=== PATIENT | female | born 1940 | race Caucasian/White ===

== ENCOUNTER 2016-12-21 07:30 | Inpatient (IN) | payer MEDICARE ==
--- NOTE | 2016-12-11 22:34 | HP ---
HISTORY AND PHYSICAL: DATE OF OFFICE VISIT: 12/11/16 DATE OF SURGERY: 12/21/16 SURGEON: Randa Dowell MD PROCEDURE: Left total knee arthroplasty. CHIEF COMPLAINT: Left knee pain. HISTORY OF PRESENT ILLNESS: Ms. Frausto is a 76-year-old female with complaints of left knee pain. She has failed conservative management and has elected to proceed with a left total knee arthroplasty. The surgery is scheduled for 12/21/[address] Dowell. PAST MEDICAL HISTORY: Osteoarthritis. PAST SURGICAL HISTORY: Right knee arthroplasty, left hip hemiarthroplasty followed by conversion to a left total hip arthroplasty, bilateral bunionectomy , and tonsillectomy. CURRENT MEDICATIONS: 1. Multivitamin. 2. Calcium. 3. Vitamin D3 and B12. ALLERGIES: No known drug allergies. FAMILY HISTORY: Heart disease, diabetes, and cancer. SOCIAL HISTORY: She is a 76-year-old female, she lives alone, but lives next door to her son. She does not smoke. Uses drugs occasionally. Uses alcohol. REVIEW OF SYSTEMS: A complete 14-point review of systems was reviewed with the patient. All was negative or noncontributory. PHYSICAL EXAMINATION GENERAL: She is well developed and well nourished, in no acute distress. VITAL SIGNS: She stands 5 feet 3 inches tall, weighs 120 pounds, her blood pressure 117/72, and heart rate 79. HEENT: Normocephalic and atraumatic. NECK: Supple. No palpable lymph nodes. Trachea is midline. PULMONARY: The lungs are clear to auscultation bilaterally. CARDIO: Regular rate and rhythm. Strong S1 and S2. No murmurs, gallops, or rubs. ABDOMEN: Soft, nontender, and nondistended. NEUROLOGIC: She is alert and oriented x3. Cranial nerves II through XII are intact. MUSCULOSKELETAL: Left lower extremity, the skin is intact. She has a moderate joint effusion and tenderness over the medial and lateral joint line and 2+ dorsalis pedis pulses and intact sensation. ASSESSMENT AND PLAN: Ms. Frausto is a 76-year-old female with complaints of left knee pain. She has failed conservative management and has elected to proceed with a left total knee arthroplasty, which is scheduled for 12/21/[address] Dowell discussed the risks and benefits of the surgery at today's visit and all of her questions were answered. Percocet and Colace were sent to our pharmacy for postoperative pain control and she will discuss the DVT prophylaxis with Dr. Dowell. She would prefer to take aspirin twice a day over the Coumadin. She will need her medication sent at today's visit until they make the decision. She will followup with Dr. Dowell in 10 to 14 days. KAREN COLLADO [id number]/[facility] #: [id number] MTDArron
--- NOTE | 2017-03-02 20:31 | HP ---
HISTORY AND PHYSICAL: DATE OF ADMISSION/SURGERY: 03/13/17 DATE OF OFFICE VISIT: 03/02/17 SURGEON: Randa Dowell MD * (DICTATED BY KAREN COLLADO) PROCEDURE: Left total knee arthroplasty. CHIEF COMPLAINT: Left knee pain. HISTORY OF PRESENT ILLNESS: Ms. Frausto is a 76-year-old female with complaints of left knee pain. She has failed conservative management and has elected to proceed with a left total knee arthroplasty, which is scheduled for 03/13/[address] Dowell. PAST MEDICAL HISTORY: Osteoarthritis. PAST SURGICAL HISTORY: Tonsillectomy, right total knee arthroplasty, left total hip arthroplasty. CURRENT MEDICATIONS: 1. Multivitamin. 2. Calcium. 3. Vitamin D. ALLERGIES: No known drug allergies. FAMILY HISTORY: Heart disease and lymphoma. SOCIAL HISTORY: She is a 76-year-old female. She lives alone. She does not smoke or use drugs. Uses occasional alcohol. REVIEW OF SYSTEMS: A complete 14-point review of systems was reviewed with the patient, it was negative and noncontributory. PHYSICAL EXAMINATION GENERAL: Well developed, well nourished, in no acute distress. VITAL SIGNS: She stands 5 feet 3 inches tall, weighs 120 pounds, her blood pressure is 120/81, her heart rate is 77. HEENT: Normocephalic, atraumatic. NECK: Supple. No palpable lymph nodes. PULMONARY: The lungs are clear to auscultation bilaterally. CARDIO: Regular rate and rhythm. Strong S1, S2. ABDOMEN: Soft, nontender, and nondistended. MUSCULOSKELETAL: Left lower extremity, the skin is intact. There are no open wounds or abrasions. Tpey-nk-qhbowdvo joint effusion. Tenderness over the medial and lateral joint line. No varus or valgus instability. She walks with a slightly antalgic-type gait favoring her left knee. NEUROLOGICAL: Alert and oriented x3. Cranial nerves II through XII are intact. ASSESSMENT AND PLAN: Ms. Frausto is a 76-year-old female with complaints of left knee pain secondary to advanced osteoarthritis. She has failed conservative management and has elected to proceed with left total knee arthroplasty, which is scheduled for 03/13/[address] Dowell discussed the risks and benefits of the surgery and all of her questions were answered. Colace was sent to her pharmacy today for postoperative constipation. She has a prescription for Percocet and she has declined Coumadin. She preferred to take aspirin, so prescription for aspirin 325 was sent to her pharmacy. It is recommended she take it twice a day for a month for DVT prophylaxis. She will see Dr. Dowell back in 2 weeks after the surgery. KAREN COLLADO [id number]/[facility] #: [id number] MTDArron
[2017-03-12] MEDS ORDERED: Buffered Lidocaine 0.9% SYRIN* 5 ML/SYR SYRINGE INTRADERM ONE (14:38)
[2017-03-13] MEDS ORDERED: Gabapentin CAP(*) 300 MG PO ONE (06:00)
[2017-03-13] MEDS ORDERED: Buffered Lidocaine 0.9% SYRIN* 5 ML/SYR SYRINGE ONE (10:13)
[2017-03-13] MEDS ORDERED: Gabapentin CAP(*) 300 MG ONE (10:13)
[2017-03-13] MEDS ORDERED: ceFAZolin 2 GM PREMIX(*) 2 GM/50 ML BAG IVPB ONE (10:13)
[2017-03-13] MEDS ORDERED: Midazolam* 1 MG/ML 5 ML VIAL (5 MG) ONE (13:32)
[2017-03-13] MEDS ORDERED: fentaNYL* 50 MCG/ML 2 ML VIAL (100 MCG VIAL) ONE (13:32)
[2017-03-13] MEDS ORDERED: Lidocaine 2% EPI 1:200000 MPF* 20 ML VIAL ONE (14:07)
[2017-03-13] MEDS ORDERED: Propofol* 10 MG/ML 20 ML BTL IV PUSH ONE (14:31)
[2017-03-13] MEDS ORDERED: Ibuprofen TAB* 400 MG PO PRN (14:50)
[2017-03-13] MEDS ORDERED: Lactated Ringers 500 ml BAG* 500 ML IV PRN (14:50)
[2017-03-13] MEDS ORDERED: DiMENhydriNATE IV* 50 MG/ML VIAL IV PUSH PRN (14:50)
[2017-03-13] MEDS ORDERED: fentaNYL* 50 MCG/ML 2 ML VIAL (100 MCG VIAL) IV PRN (14:53)
[2017-03-13] MEDS ORDERED: Ropivacaine* 300 MG in NS 0.9% 250 ML* 240 ML EPIDURAL SCH (15:00)
[2017-03-13] MEDS ORDERED: EPHEDrine (Pressors)* 50 MG/ML VIAL ONE (15:55)
[2017-03-13] MEDS ORDERED: Acetaminophen TAB* 325 MG PO PRN (16:21)
[2017-03-13] MEDS ORDERED: Polyethylene Glycol 3350* 17 GM PACKET PO PRN (16:30)
[2017-03-13] MEDS ORDERED: Magnesium Hydroxide LIQ* 30 ML UDC PO PRN (16:30)
[2017-03-13] MEDS ORDERED: Bisacodyl SUPP* 10 MG SUPP PR PRN (16:30)
--- NOTE | 2017-03-13 17:43 | RAD ---
Indication: Immediate postop exam following LEFT total knee replacement. Comparison: November 06, 2016 Technique: Portable AP and cross table lateral views LEFT knee. Report: Status post total knee replacement. Anterior surgical drain in place. Post-op fluid and gas is seen in the joint space and anterior subcutaneous tissues. Alignment is anatomic. No periprosthetic fracture evident. IMPRESSION: Unremarkable immediate postoperative appearance following LEFT knee replacement.
[2017-03-13] MEDS: Cyanocobalamin TAB* 500 MCG PO SCH (18:06)
[2017-03-13] MEDS: ceFAZolin VIAL(*) 1 GM in NS 0.9% 50 ML* 50 ML IVPB SCH (22:22)
[2017-03-13] MEDS: Docusate CAP* 100 MG PO SCH (22:39)
[2017-03-14] MEDS: oxyCODONE TAB* 5 MG TAB PO PRN ×3 (05:43→19:13)
[2017-03-14] MEDS: ceFAZolin VIAL(*) 1 GM in NS 0.9% 50 ML* 50 ML IVPB SCH ×2 (05:45→13:36)
[2017-03-14 05:57] LABS: Hematocrit 35 % (35-47); Hemoglobin 11.7 g/dl (12.0-16.0)
[2017-03-14] MEDS ORDERED: Ondansetron INJ* 2 MG/ML VIAL IV PRN (06:00)
[2017-03-14] MEDS ORDERED: diPHENhydraMINE PO* 25 MG PO PRN (06:00)
[2017-03-14] MEDS ORDERED: Morphine INJ* 4 MG/ML 1 ML SYRINGE IV PRN (06:00)
[2017-03-14] MEDS ORDERED: diPHENhydraMINE IV* 50 MG/ML 1 ml VIAL (BENADRYL) IV PRN (06:00)
[2017-03-14] MEDS ORDERED: Ondansetron TAB* 4 MG PO PRN (06:00)
[2017-03-14 06:09] LABS: BUN/Creatinine Ratio 20.7 (8-20); Calcium 8.4 mg/dL (8.6-10.3); EGFR African American 129.6 (>60); EGFR Non-African American 100.8 (>60); Potassium 3.8 mmol/L (3.5-5.0)
[2017-03-14] MEDS: oxyCODONE/Acetamin 5/325 MG* TAB PO PRN (08:22)
[2017-03-14] MEDS: Multivitamins/Minera Areds(NF) 1 CAP CAP PO SCH (08:23)
[2017-03-14] MEDS: Calcium Carbonate TAB* 1250 MG (CALCIUM 500 MG) PO SCH (08:23)
[2017-03-14] MEDS: Docusate CAP* 100 MG PO SCH ×2 (08:23→21:13)
[2017-03-14] MEDS: Cholecalciferol TAB* 400 UNIT PO SCH (08:23)
[2017-03-14] MEDS: Aspirin TAB* 325 MG PO SCH ×2 (09:39→21:13)
--- NOTE | 2017-03-14 10:16 | PN ---
Progress Note - Progress Note Date of Service: 03/14/17 SOAP: Subjective: []Patient seen OOB in chair. She felt dizzy when she was moving to chair with PT. Denies SOB or CP. Pain moderate left knee. Objective: [] Vital Signs Temp 98.1 F 03/14/17 08:00 Pulse 80 03/14/17 08:00 Resp 16 03/14/17 08:22 BP 117/67 03/14/17 08:00 Pulse Ox 99 03/14/17 09:15 Intake & Output 03/13/17 03/14/17 03/14/17 18:59 06:59 18:59 Intake Total 3150 2957 360 Output Total 250 650 Balance 2900 2307 360 Weight 118 lb 6.4 oz Intake: IV Fluids 3050 2064 LR 3000 2064 NS 50ML, Cefazolin 2G 50 IVPB 53 ABX - CEFAZOLIN 53 Oral 100 840 360 Output: Amezquita 250 650 Other: # Bowel Movements 0 Laboratory Results - last 24 hr 03/14/17 03/14/17 05:18 05:18 Hgb 11.7 L Hct 35 Sodium 131 L Potassium 3.8 Chloride 99 L Carbon Dioxide 28 Anion Gap 4 BUN 12 Creatinine 0.58 Est GFR ( Amer) 129.6 Est GFR (Non-Af Amer) 100.8 BUN/Creatinine Ratio 20.7 H Glucose 161 H Calcium 8.4 L Left knee dressings dry and intact hemovac drain pulled without difficulty, tip intact calf NT +DF/PF left ankle sensation intact distally Assessment: []s/p Left total knee arthroplasty POD #1 Plan: []PT/OT WBAT Dizziness likely due to narcotics, will adjust if necessary Ecotrin 325 mg BID Home 1-2 days
[2017-03-14] MEDS ORDERED: Scopolamine 1.5 mg* PATCH TRANSDERM SCH (11:00)
--- NOTE | 2017-03-14 13:53 | OP ---
DATE OF OPERATION: 03/13/17 - ROOM #346 DATE OF : 38 ATTENDING SURGEON: Randa Dowell MD CAREGIVERS NON MEDICAL: KAREN Tavares. Ms. Alas did help throughout the procedure with preparation of the leg, wound retraction, manipulation of the knee, and wound closure. ANESTHESIOLOGIST: Dr. Anton. ANESTHESIA TYPE: Spinal epidural. PRE-OP DIAGNOSIS: Severe endstage degenerative osteoarthritis of the left knee joint with valgus deformity. POST-OP DIAGNOSIS: Severe endstage degenerative osteoarthritis of the left knee joint with valgus deformity. OPERATIVE PROCEDURE: Left total knee arthroplasty. TOURNIQUET TIME: 43 minutes. HARDWARE USED: Cemented Tobar and nephew total knee arthroplasty hardware. Two packages of Simplex bone cement. For the femur, a size 5 left, narrow, femoral component. For the tibia, a size 3 left tibial baseplate. For the insert, an 11- mm posterior stabilized articular insert and for the patella, a size 29, 7.5 thickness, 3-peg all-poly patella. SPECIMEN: Bone and cartilage from the left knee joint sent to pathology. ESTIMATED BLOOD LOSS: 200 cc. COMPLICATIONS: None. BRIEF HISTORY/INDICATION: Ms. Frausto is a 76-year-old female with years of increasingly severe left knee pain and deformity. She failed conservative treatment with anti-inflammatories, brace wear, pain medication, intraarticular injection, and physical therapy. Radiograph showed [id number] severe arthritis. She was developing a valgus deformity at the knee. She elected to undergo left total knee arthroplasty due to continued pain and decreased quality of life. Informed consent was obtained from the patient. She understood the risks of surgery included but were not limited to bleeding, infection, damage to nearby structures, continued pain, need for further surgery , intraoperative fracture, nerve palsy, hardware failure or loosening, knee stiffness, loss of motion, stroke, heart attack, blood clot, and . She wished to proceed. INTRAOPERATIVE FINDINGS: Intraoperatively, the patient was noted to have preop flexion contracture of 10 degrees with flexion of 125 degrees. She was noted to have postop range of motion full extension to 130 degrees at the end of the case. She did have a 15-degree valgus deformity, which was corrected to anatomic 3 to 5 degrees of valgus by the end of the case. She was noted to have full-thickness loss of cartilage in the lateral and patellofemoral compartments with subchondral sclerosis, which was significant. 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 DESCRIPTION OF PROCEDURE: Ms. Frausto was identified in the pre-anesthesia unit. Her left lower extremity was marked as the correct operative site. Informed consent was signed and placed in the chart. The patient was taken to the operating room and placed under spinal epidural anesthesia. A Amezquita catheter was placed. Tourniquet was placed on the left thigh. Left lower extremity was prepped and draped in the usual sterile fashion. Preop time-out was made to correctly identify the patient's side and site. Appropriate perioperative antibiotics were given within 1 hour of incision. Tourniquet was inflated and total tourniquet time for this procedure was 43 minutes. A 12-cm midline incision was made with a 10-blade and carried down sharply to the extensor mechanism. The extensor mechanism was then opened using standard medial parapatellar arthrotomy. Patella was subluxed laterally. Electrocautery was used to periosteally elevate soft tissue off the superomedial tibia to the mid sagittal plane. The knee was flexed up. Anterior horn and the lateral meniscus were sharply released. There was no ACL. A drill was used to enter the distal femur. Intramedullary distal femoral cutting guide was placed and pinned into position. Lateral femoral condylar hypoplasia was noted and accounted for. 5-mm of distal femoral bone was carefully removed with an oscillating saw. Next, the external rotation guide was pinned on the distal femur. The distal femur was sized to a size 5. Size 5 multi-cutting jig was pinned on the distal femur. The oscillating saw was used to make appropriate 4-chamfer cuts. All bony fragments were carefully removed. The PCL was completely released at this point. The tibia was subluxed anteriorly. Extramedullary tibial cutting guide was pinned on the proximal tibia. Oscillating saw was used to make the proximal tibial cut perpendicular to the mechanical axis of the tibia. The bone was carefully removed. The knee was brought into full extension and a spacer block had a good fit. There was good medial and lateral ligamentous balancing. Flexion and extension gaps were well balanced. Overall alignment was approximately 3 degrees of anatomic valgus. The knee was flexed up and lamina tomahawk weapon system operator was placed both medially and laterally. Any remaining meniscus was care-fully removed using electrocautery. Posterior osteophytes were carefully removed using a curved osteotome. A size 5 left, narrow, femoral trial was chosen and impacted on to the distal femur. This trial had excellent fit. The box for the posterior stabilized implant was prepared using a reamer and box-cut osteotome. Size 3 tibial tray trail with an 11-mm insert trial was chosen. The knee was taken through a range of motion. The knee had full extension to 130 degrees of flexion. Good patellofemoral tracking. The patella was everted. 7-mm of patellar bone and cartilage were carefully removed using an oscillating saw. The patella was sized to a size 29. The 3 peg holes were drilled through the size 29 guide. A 7.5 thickness trial 29 patella was chosen. This was placed and the knee was taken through a range of motion. There was good patellofemoral tracking. All trials were carefully removed. Tibia was subluxed anteriorly and sized to a size 3. Proximal tibia was prepared using a keel punch. All bony cut surfaces were copiously irrigated with sterile saline and dried. The final implants were cemented into place starting with the tibia, followed by the femur and last the patella. An 11-mm insert trial was chosen and placed while the knee was brought out into full extension. Tourniquet was turned down at 43 minutes. The knee was copiously irrigated with sterile saline. Electrocautery was used to obtain meticulous hemostasis. Once the cement had fully cured, the insert trial was removed. Any excess cement was carefully removed from around the implant capsule. Final insert chosen was an 11-mm posterior stabilized articular insert size 3-4. This was locked into position on the tibial tray without difficulty. Stability of the insert was checked and rechecked and noted to be stable. The knee was copiously irrigated with sterile saline. The extensor mechanism was closed using interrupted #1 Vicryls over a medium Hemovac drain. The rest of the incision was closed in a layered fashion using 0 and 2-0 Vicryls. Skin was closed using running 3-0 nylon sutures. The incision was covered with sterile Xeroform, 4x4s, and Webril. Geovany wrap and cold pack were placed over this. The patient's anesthesia was reversed without difficulty. She was taken to the PACU in stable condition. Intended weightbearing will be weightbearing as tolerated. Intended DVT prophylaxis will be Coumadin with a Lovenox bridge. [id number]/[facility] #: [id number] [facility]
[2017-03-14] MEDS: Cyanocobalamin TAB* 500 MCG PO SCH (17:30)
[2017-03-15] MEDS: oxyCODONE/Acetamin 5/325 MG* TAB PO PRN (03:38)
[2017-03-15 06:07] LABS: Hematocrit 29 % (35-47); Hemoglobin 9.9 g/dl (12.0-16.0)
[2017-03-15] MEDS: Cholecalciferol TAB* 400 UNIT PO SCH (08:58)
[2017-03-15] MEDS: Aspirin TAB* 325 MG PO SCH ×2 (08:59→21:44)
[2017-03-15] MEDS: Calcium Carbonate TAB* 1250 MG (CALCIUM 500 MG) PO SCH (08:59)
[2017-03-15] MEDS: Docusate CAP* 100 MG PO SCH ×2 (08:59→21:44)
[2017-03-15] MEDS: oxyCODONE TAB* 5 MG TAB PO PRN (08:59)
[2017-03-15] MEDS: Multivitamins/Minera Areds(NF) 1 CAP CAP PO SCH (09:00)
--- NOTE | 2017-03-15 10:38 | PN ---
Progress Note - Progress Note Date of Service: 03/15/17 SOAP: Subjective: []Patient seen working in PT, doing well with leg extensions, states she has moderate knee pain but more bothersome is the nausea from Percocet. She hopes to go home tomorrow. She denies SOB or CP or dizziness. Objective: [] Vital Signs Temp 98.5 F 03/15/17 07:28 Pulse 81 03/15/17 07:28 Resp 16 03/15/17 08:59 BP 93/52 03/15/17 07:28 Pulse Ox 98 03/15/17 08:00 Intake & Output 03/14/17 03/15/17 03/15/17 18:59 06:59 18:59 Intake Total 1600 1160 140 Output Total 1200 600 200 Balance 400 560 -60 Intake: IV Fluids 880 ABX - CEFAZOLIN 165 LR 715 Oral 720 1160 140 Output: Urine 1100 600 200 Amezquita 100 Other: # Bowel Movements 0 Laboratory Results - last 24 hr 03/15/17 05:54 Hgb 9.9 L Hct 29 L Left knee dressings were changed, incision benign without new drainage new 4x4s and MAYRA applied calf non tender and soft +DF/PF left ankle Assessment: []s/p left total knee arthroplasty POD #2 Plan: []PT/OT WBAT ASA 325 mg BID try Tramadol for pain Discharge home Sunday with VNS.
[2017-03-15] MEDS: traMADol TAB* 50 MG PO PRN ×2 (13:06→21:44)
[2017-03-15] MEDS: Cyanocobalamin TAB* 500 MCG PO SCH (17:48)
[2017-03-16 05:59] LABS: Hematocrit 28 % (35-47); Hemoglobin 9.5 g/dl (12.0-16.0)
[2017-03-16] MEDS: Aspirin TAB* 325 MG PO SCH (08:44)
[2017-03-16] MEDS: Calcium Carbonate TAB* 1250 MG (CALCIUM 500 MG) PO SCH (08:44)
[2017-03-16] MEDS: Docusate CAP* 100 MG PO SCH (08:44)
[2017-03-16] MEDS: Cholecalciferol TAB* 400 UNIT PO SCH (08:44)
[2017-03-16] MEDS: Multivitamins/Minera Areds(NF) 1 CAP CAP PO SCH (08:49)
--- NOTE | 2017-03-16 11:40 | PN ---
Progress Note - Progress Note Date of Service: 03/16/17 SOAP: Subjective: 76 y.o female s/p L TKA 03/13/[address] Dowell. Patient reports feeling well, no complaints/ concerns. VSS overnight, H&H stable. [place] well with PT. Objective: General- Well appearing, NAD AO resting in bed comfortably MSK- Dressing taken down, incision C/D/I, minimal erythema at most proximal incision. + DF/PF. PT 2+ b/l, neg homans sign b/l. sensation grossly intact. Vital Signs Temp 98.4 F 03/16/17 07:35 Pulse 82 03/16/17 07:35 Resp 18 03/16/17 08:00 BP 107/78 03/16/17 07:35 Pulse Ox 99 03/16/17 08:00 Intake & Output 03/15/17 03/16/17 03/16/17 18:59 06:59 18:59 Intake Total 340 1065 480 Output Total 900 500 Balance -560 565 480 Intake: Oral 340 1065 480 Output: Urine 900 500 Other: # Bowel Movements 0 Laboratory Results - last 24 hr 03/16/17 05:35 Hgb 9.5 L Hct 28 L Assessment: 76 y.o female s/p L TKA 03/13/[address] Dowell, stable Plan: - DVT prophylaxis- ASA 325 mg BID - Follow up with Dr. Dowell within 10-14 days - Continue PT at home - D/C to home today with home care. Active Medications Generic Name Dose Route Start Last Admin Trade Name Freq PRN Reason Stop Dose Admin Acetaminophen 650 mg 03/13/17 16:21 03/14/17 05:43 Tylenol Tab* PO 650 mg Q4H PRN Administration mild pain or fever Aspirin 325 mg 03/14/17 09:00 03/16/17 08:44 Aspirin Tab* PO 325 mg BID YOLANDA Administration Bisacodyl 10 mg 03/13/17 16:30 Dulcolax Supp* TX DAILY PRN constipation Calcium Carbonate 1,250 mg 03/14/17 09:00 03/16/17 08:44 Calcium Carbonate Tab* PO 1,250 mg QAM YOLANDA Administration Cholecalciferol 1,000 unit 03/14/17 09:00 03/16/17 08:44 Vitamin D Tab* PO 1,000 unit QAM YOLANDA Administration Cyanocobalamin 500 mcg 03/13/17 18:00 03/15/17 17:48 Vitamin B12 Tab* PO 500 mcg QPM YOLANDA Administration Diphenhydramine HCl 12.5 mg 03/14/17 06:00 Benadryl Iv* IV Q6H PRN PRURITIS Diphenhydramine HCl 25 mg 03/14/17 06:00 Benadryl Po* PO Q6H PRN INSOMNIA Docusate Sodium 100 mg 03/13/17 21:00 03/16/17 08:44 Colace Cap* PO 100 mg BID YOLANDA Administration Lactated Ringer's 1,000 mls @ 100 mls/hr 03/13/17 17:00 03/14/17 03:07 Lactated Ringers 1000 Ml Bag* IV 100 mls/hr PER RATE YOLANDA Administration Lactulose 30 ml 03/13/17 16:30 03/15/17 21:44 Lactulose* PO 30 ml Q6H PRN Administration constipation Magnesium Hydroxide 30 ml 03/13/17 16:30 03/15/17 08:56 Milk Of Magnesia Liq* PO 30 ml Q6H PRN Administration constipation Morphine Sulfate 4 mg 03/14/17 06:00 Morphine Inj (Syringe)* IV Q2H PRN PAIN Multivitamins/Minerals 1 cap 03/14/17 09:00 03/16/17 08:49 Preservision Areds(Multivitamins/Mineral)(Nf) PO Not Given QAM [facility] Ondansetron HCl 4 mg 03/14/17 06:00 03/14/17 09:17 Zofran Inj* IV 4 mg Q6H PRN Administration nausea Ondansetron HCl 4 mg 03/14/17 06:00 Zofran Tab* PO Q6H PRN NAUSEA Oxycodone HCl 10 mg 03/14/17 06:00 03/15/17 08:59 Roxycodone Tab* PO 10 mg Q4H PRN Administration breakthru pain Oxycodone/Acetaminophen 1 tab 03/14/17 06:00 03/15/17 03:38 Percocet 5/325 Tab* PO 1 tab Q3H PRN Administration PAIN - MODERATE Pharmacy Profile Note 1 note 03/17/17 11:00 Scopolomine Patch Remove* PATCH OFF Q72H [facility] Polyethylene Glycol/Electrolytes 17 gm 03/13/17 16:30 Miralax* PO DAILY PRN Constipation Scopolamine 1 patch 03/14/17 11:00 03/14/17 10:28 Transderm-Scop 1.5 Mg Patch* TRANSDERM 1 patch Q72H YOLANDA Administration Tramadol HCl 50 mg 03/15/17 10:38 03/15/17 21:44 Ultram* PO 50 mg Q6H PRN Administration mild to moderate pain
[2017-03-16 12:02] VITALS: BP 108/56
[2017-03-17] MEDS ORDERED: Scopolomine PATCH Remove* 1 NOTE MISC PATCH OFF SCH (11:00)
== END 2017-03-16 12:50 | disposition home health service (06) | DRG 470 ==
LOC: AA 03-13 10:05 → SSU 03-13 17:32
PROVIDERS: ADMIT Orthopaedic Surgery Adult Reconstructive Orthopaedic Surgery; ATTEND Orthopaedic Surgery Adult Reconstructive Orthopaedic Surgery
PROC: 0SRD0J9 Replacement of Left Knee Joint with Synthetic Substitute, Cemented, Open Approach (ICD-10-PCS; principal; 2017-03-13 12:30)
DX: M17.12 Unilateral primary osteoarthritis, left knee (principal); F19.90 Other psychoactive substance use, unspecified, uncomplicated; M21.062 Valgus deformity, not elsewhere classified, left knee; Z96.651 Presence of right artificial knee joint; Z96.642 Presence of left artificial hip joint; R11.0 Nausea; T40.2X5A Adverse effect of other opioids, initial encounter; M25.762 Osteophyte, left knee; Z80.7 Family history of other malignant neoplasms of lymphoid, hematopoietic and related tissues; Z82.49 Family history of ischemic heart disease and other diseases of the circulatory system; Z72.89 Other problems related to lifestyle; Z83.3 Family history of diabetes mellitus
CPT/HCPCS: 36415; 80048; 85014; 85018; 94760; A9270-GY; C1776; J0690; J2250; J2405; J2704; J2795; J3010

== ENCOUNTER 2016-12-30 05:41 | Observation (INO) | payer MEDICARE ==
[2016-12-30 06:53] LABS: Albumin 3.8 g/dL (3.2-5.2); Calcium 9.3 mg/dL (8.6-10.3); EGFR African American 90.8 (>60); EGFR Non-African American 70.6 (>60); Globulin 2.7 g/dL (2-4); Magnesium 2.1 mg/dL (1.9-2.7); Potassium 3.9 mmol/L (3.5-5.0); Total Bilirubin 0.9 mg/dL (0.2-1.0); Total Protein 6.5 g/dL (6.4-8.9)
[2016-12-30 06:54] LABS: Troponin I 0.01 ng/mL (<0.04)
[2016-12-30 06:58] LABS: Hematocrit 43 % (35-47); Hemoglobin 14.6 g/dl (12.0-16.0); Mean Corpuscular HGB Conc 34 g/dl (31-36); Mean Corpuscular Hemoglobin 31 pg (27-31); Mean Corpuscular Volume 90 fL (80-97); Mean Platelet Volume 8 um3 (7.4-10.4); Red Cell Distribution Width 14 % (10.5-15); White Blood Count 4.6 10^3/ul (3.5-10.8)
[2016-12-30 07:02] LABS: TSH (Thyroid Stimulating Horm) 3.13 mcIU/mL (0.34-5.60)
[2016-12-30 08:35] LABS: Free T4 0.91 ng/dL (0.61-1.12)
[2016-12-30] MEDS ORDERED: Aspirin TAB* 325 MG PO ONE (08:40)
[2016-12-30] MEDS ORDERED: Acetaminophen TAB* 325 MG PO PRN (10:41)
[2016-12-30] MEDS ORDERED: Ibuprofen TAB* 400 MG PO PRN (10:51)
[2016-12-30 10:58] LABS: Urine Bacteria Absent (Absent); Urine Bilirubin Negative (Negative); Urine Glucose Negative (Negative); Urine Nitrite Negative (Negative)
[2016-12-30] MEDS: NS 0.9% 1000 ML* 1,000 ML IV SCH ×2 (11:59→20:15)
--- NOTE | 2016-12-30 15:54 | HP ---
HISTORY AND PHYSICAL: PRIMARY CARE PROVIDER: Dr. Menard. DATE OF ADMISSION: 12/30/2016. CHIEF COMPLAINT: Palpitations and lightheadedness. HISTORY OF PRESENT ILLNESS: Virgen Frausto is a 76-year-old female who was being evaluated for left total knee arthroplasty that was planned to be performed by Dr. Dowell. Patient was noted that she had ventricular bigeminy on her EKG and her surgery was delayed. Ever since, the patient had been worried and unwell. She stated that she felt light-headed, mostly when she changes position. By lightheadedness, she explained that she experiences heaviness in the back of her head and occasional headache. Today in the morning, she had an episode of palpitation. She stated that her heart was fluttering and radiated to bilateral shoulders. She denied any chest pain. The patient stated that her exercise tolerance is excellent. She does aerobics and yoga as well as water aerobics and she has not had any problems with exercise intolerance. She is going to be placed on overnight observation. So far her EKG is unremarkable and troponin is negative. PAST MEDICAL HISTORY: 1. Osteoarthritis, status post right knee arthroplasty and left hip hemiarthroplasty in the past. She also has a history of bilateral bunionectomy. 2. History of tonsillectomy. MEDICATIONS: Include: 1. Multivitamin. 2. Calcium supplement, vitamin D, and vitamin B12 supplements. ALLERGIES: No known drug allergies. FAMILY HISTORY: Positive for heart disease in parents. SOCIAL HISTORY: Patient lives alone. She denies any alcohol, tobacco, or drug use. Her surrogate is her son who lives nearby. His name is Lucie Frausto. REVIEW OF SYSTEMS: Please see history of present illness. In addition to the above mentioned, the patient had always been in good health. Once again her exercise tolerance is excellent. She denies any chest pain. All the remaining 14 systems were reviewed with the patient and were otherwise negative. PHYSICAL EXAMINATION VITAL SIGNS: Blood pressure 123/73 that when sitting down, and when standing up it went down to 118/70. Heart rate continues to be in the 70s. Temperature was 97.8, respiratory rate 15, oxygen saturation 98% on room air. GENERAL: The patient is a very pleasant 76-year-old female who is in no acute distress, alert, awake, and oriented x3. HEENT: Head atraumatic, normocephalic. Eyes: Pupils equal, reactive to light and accommodation. Oropharynx: Clear. Mucosa moist. NECK: Supple. No JVD. No bruit bilaterally. CARDIOVASCULAR: Regular rate and rhythm. No murmur. RESPIRATORY: Clear to auscultation bilaterally. ABDOMEN: Soft, nontender. Bowel sounds are present in all 4 quadrants. EXTREMITIES: There is no edema. Pulses +2 bilaterally. No clubbing or cyanosis. Please note severe osteoarthritic changes in DIP joints in bilateral hands as well as bunions in bilateral feet. NEUROLOGIC: On neuro evaluation, her speech is clear. The patient does appear to have left-sided facial droop and when she smiles it is very pronounced and present on the left. Nevertheless, when she was given a mirror and asked to compare with the way she usually is, she stated that that abnormality is chronic. Remaining cranial nerves are grossly intact. Motor strength is 5/5 bilaterally. Sensation is intact. Please note that when checking the patient orthostatic blood pressures, when she stood up she felt "dizzy." LABORATORY DATA: Showed a white blood cell count of 4.6, hemoglobin 14.6, hematocrit 43, and platelet of 185. Sodium 136, potassium 3.9, chloride 104, carbon dioxide 26, BUN 15, creatinine 0.79. Liver function tests were unremarkable. Troponin of 0.01. TSH of 3.1. Urinalysis grossly unremarkable apart from trace esterase. EKG showed normal sinus rhythm. Her heart rate is 72 beats per minute with minimal ST-elevation in leads V1 to V3, most likely due to J-point elevation. Comparing with the prior EKG from 12/13/16 patient had previously bigeminy that by today resolved. Portable chest x-ray, impression: "No active disease." ASSESSMENT AND PLAN: 1. Episodes of lightheadedness and palpitations. At this point, patient appears to be mildly orthostatic and we will treat the patient with intervenous fluids and admit her overnight to telemetry monitored bed. We will continue tracking troponins. 2. In regards to patient's bigeminy, recorded while preop evaluated. At this point, I will obtain a transthoracic echocardiogram in the morning and ask Dr. Stringer to see the patient in consultation. For DVT prophylaxis, the patient is going to be placed on heparin subcutaneously. Code status, the patient's code status is full. TIME SPENT: Approximately 65 minutes was spent on admission of this patient, more than half the time was spent [id number] with the patient doing the interview and physical exam. CC: Dr. Dowell, Dr. Menard and Dr. Stringer.* [id number]/[facility] #: [id number] MTDD
--- NOTE | 2016-12-30 16:10 | CONS ---
CC: Dr. Randa Dowell; Dr. Virgen Menard CARDIOLOGY CONSULTATION: DATE OF CONSULT: 12/30/16 INDICATION FOR CONSULTATION: Chest fluttering and PVCs. HISTORY OF PRESENT ILLNESS: The patient is a 76-year-old female with very little past medical histo ry, who came to the emergency room because of chest fluttering. The patient states that she awoke th is morning. She felt like her heart was skipping beats. She also had some mild discomfort in her c hest. She denied any crushing chest pain. She denied any radiation of the discomfort to her should er or jaw. She did not have any diaphoresis. The patient decided to come to the emergency room. The patient was scheduled for knee replacement surgery earlier this week. On arrival to the preop a laura, she was noted to be in ventricular bigemini. An EKG showed frequent PVCs and the surgery was c anceled. The patient is potentially scheduled for a cardiology consultation later this week. PAST MEDICAL HISTORY: Significant for arthritis. PAST SURGICAL HISTORY: 1. Right knee arthroplasty. 2. Hip arthroplasty. 3. Tonsillectomy. OUTPATIENT MEDICATIONS: 1. Multivitamin a day. 2. Calcium tablets. 3. Vitamin B12. ALLERGIES: No known drug allergies. FAMILY HISTORY: No history of early coronary artery disease. SOCIAL HISTORY: She lives alone. She lives next door to her son. She denies tobacco or alcohol us e. PHYSICAL EXAMINATION: Height is 5 feet 3 inches, weight is 120 pounds, heart rate is 72, blood pres sure 123/73, temperature is 97.8, oxygen saturation 99% on room air. Sclerae anicteric. Oropharynx is pink without erythema. Carotids are 2+ without bruits. JVD is normal. Thyroid is normal. Car diac Exam: S1, S2 without any murmurs, rubs, or gallops. Lungs are clear to auscultation bilaterall y. There is no dullness to percussion. Abdomen is soft, nontender, nondistended with normoactive b owel sounds. Extremities show no edema. She has 2+ pulses throughout. The patient is awake, alert , and oriented. She moves all 4 extremities equally. DIAGNOSTIC STUDIES: An EKG on December 13 demonstrates normal sinus rhythm with ventricular bigemini . An EKG today demonstrates normal sinus rhythm with J-point elevation which is nonspecific. LABORATORY STUDIES: Chemistries within normal limits. CBC within normal limits. TSH is normal. IMPRESSION: This is a 76-year-old female who was admitted to the hospital with chest fluttering and mild chest discomfort. The patient had a recent EKG which demonstrated ventricular bigemini. The patient was admitted to the hospital to rule out myocardial infarction. The patient will get an echocardiogram tomorrow morning. If her LV function is normal and her valvular structure is normal , I think the patient can be discharged from the hospital. The patient will have an outpatient stre ss test prior to her rescheduling of her knee replacement surgery. I do not think the patient needs any medications. No other laboratory testing is necessary. [id number]/[facility] #: [id number]
[2016-12-30] MEDS: Heparin VIAL(*) 5000 UNITS/ML VIAL (FIVE THOUSAND) SUBCUT SCH (21:06)
[2016-12-31] MEDS: Heparin VIAL(*) 5000 UNITS/ML VIAL (FIVE THOUSAND) SUBCUT SCH (09:59)
--- NOTE | 2016-12-31 14:38 | ED ---
Sonja Eckert SooYoung, scribed for Franc Hairston MD on 12/30/16 at 0743 . Dizziness - HPI Summary HPI Summary: A 76 y/o F BELA presents to ED with c/o ongoing lightheadedness and dizziness this past week. Associated sx: diaphoresis, nausea, "fluttering" in chest at 0430 described as pressure, the episode did not last long. Fluttering sensation radiated to both arms and jaw. Denies: dyspnea, hematuria, dysuria, diarrhea, vomiting, fever, chills. SHx: knee and hip replacements. PCP: Dr. Menard. - History Of Current Complaint Chief Complaint: EDDizziness Stated Complaint: LIGHTHEADED Hx Obtained From: Patient Onset/Duration: Resolved Timing: Intermittent Episode Lasting - brief Severity Initially: Moderate Severity Currently: None Character: Lightheaded, Dizzy Associated Signs And Symptoms: Positive: Nausea, Diaphoresis, Palpitations - "fluttering" and pressure. Negative: Vomiting, Diarrhea, SOB, Fever, Chills - Allergies/Home Medications Allergies/Adverse Reactions: Allergies Allergy/AdvReac Type Severity Reaction Status Date / Time No Known Allergies Allergy Verified 12/30/16 05:58 PMH/Surg Hx/FS Hx/Imm Hx Previously Healthy: Yes Endocrine/Hematology History: Denies: Hx Diabetes, Hx Sickle Cell Disease Cardiovascular History: Denies: Hx Hypercholesterolemia, Hx Hypertension, Other Cardiovascular Problems/Disorders Respiratory History: Denies: Other Respiratory Problems/Disorders GI History: Denies: Other GI Disorders History: Denies: Other Problems/Disorders Musculoskeletal History: Reports: Hx Arthritis Denies: Hx Bursitis, Hx Osteoporosis, Hx Tendonitis, Other Musculoskeletal History Sensory History: Denies: Hx Cataracts, Hx Contacts or Glasses, Hx Hearing Aid Opthamlomology History: Denies: Hx Cataracts, Hx Contacts or Glasses Neurological History: Denies: Other Neuro Impairments/Disorders - Cancer History Hx Chemotherapy: No Hx Radiation Therapy: No - Surgical History Surgery Procedure, Year, and Place: right knee replacement may 2011; left hip 2012 Hx Anesthesia Reactions: No Infectious Disease History: No Infectious Disease History: Denies: Hx Clostridium Difficile, Hx Hepatitis, Hx Human Immunodeficiency Virus (HIV), Hx of Known/Suspected MRSA, Hx Shingles, Hx Tuberculosis, Hx Known/ Suspected VRE, Hx Known/Suspected VRSA, History Other Infectious Disease, Traveled Outside the [place] in Last 30 Days - Family History Known Family History: Positive: Cardiac Disease - multiple relatives - CABG, a- fib, Other - pos: Breast CA - Social History Occupation: Retired Lives: With Family Alcohol Use: Rare Hx Substance Use: No Substance Use Type: Reports: None Hx Tobacco Use: No Smoking Status (MU): Never Smoked Tobacco Review of Systems Positive: Skin Diaphoresis. Negative: Fever, Chills Negative: Erythema Negative: Sore Throat Positive: Palpitations - "fluttering". Negative: Chest Pain Negative: Shortness Of Breath, Cough Positive: Nausea. Negative: Abdominal Pain, Vomiting, Diarrhea Negative: dysuria, hematuria Negative: Myalgia, Edema Negative: Rash Psychological: Other - pos: dizziness/lightheadedness All Other Systems Reviewed And Are Negative: Yes Physical Exam - Summary Physical Exam Summary: Constitutional: Well-developed, Well-nourished, Alert. (-) Distressed Skin: Warm, Dry HENT: Normocephalic; Atraumatic Eyes: Conjunctiva normal Neck: Musculoskeletal ROM normal neck. (-) JVD, (-) Stridor, (-) Tracheal deviation Cardio: Rhythm regular, rate normal, Heart sounds normal; Intact distal pulses; The pedal pulses are 2+ and symmetric. Radial pulses are 2+ and symmetric. (-) Murmur Pulmonary/Chest wall: Effort normal. (-) Respiratory distress, (-) Wheezes, (-) Rales Abd: Soft, (-) Tenderness, (-) Distension, (-) Guarding, (-) Rebound Musculoskeletal: (-) Edema Lymph: (-) Cervical adenopathy Neuro: Alert, Oriented x3 Psych: Mood and affect Normal Triage Information Reviewed: Yes Vital Signs On Initial Exam: Initial Vitals Temp Pulse Resp BP Pulse Ox 97.8 F 70 16 151/92 99 12/30/16 05:41 12/30/16 05:41 12/30/16 05:41 12/30/16 05:41 12/30/16 05:41 Vital Signs Reviewed: Yes Diagnostics - Vital Signs Vital Signs Temp Pulse Resp BP Pulse Ox 12/30/16 06:30 62 9 109/72 98 12/30/16 06:09 66 127/75 98 12/30/16 05:45 97.8 F 70 16 151/92 99 12/30/16 05:41 97.8 F 70 16 151/92 99 - Laboratory Lab Results: Lab Results 12/30/16 12/30/16 Range/Units 06:05 06:05 Sodium 136 (133-145) mmol/L Potassium 3.9 (3.5-5.0) mmol/L Chloride 104 (101-111) mmol/L Carbon Dioxide 26 (22-32) mmol/L Anion Gap 6 (2-11) mmol/L BUN 15 (6-24) mg/dL Creatinine 0.79 (0.51-0.95) mg/dL Est GFR ( Amer) 90.8 (>60) Est GFR (Non-Af Amer) 70.6 (>60) BUN/Creatinine Ratio 19.0 (8-20) Glucose 83 (70-100) mg/dL Lactic Acid 1.0 (0.5-2.0) mmol/L Calcium 9.3 (8.6-10.3) mg/dL Magnesium 2.1 (1.9-2.7) mg/dL Total Bilirubin 0.90 (0.2-1.0) mg/dL AST 21 (13-39) U/L ALT 13 (7-52) U/L Alkaline Phosphatase 53 (34-104) U/L Troponin I 0.01 (<0.04) ng/mL Total Protein 6.5 (6.4-8.9) g/dL Albumin 3.8 (3.2-5.2) g/dL Globulin 2.7 (2-4) g/dL Albumin/Globulin Ratio 1.4 (1-3) TSH Pending Result Diagrams: 12/30/16 06:05 12/30/16 06:05 Lab Statement: Any lab studies that have been ordered have been reviewed, and results considered in the medical decision making process. Dizzy Course/Dx - Course Course Of Treatment: Pt is a 76 y/o F BIBA presenting with ongoing lightheadedness/dizziness this past week. Associated sx: diaphoresis, brief episode of "fluttering" in chest at 0430 described as pressure,sensation radiating to both arms and jaw. Had an abnormal EKG last month. FHx: cardiac disorders, multiple relatives. Trop at 0605 was 0.01. 0847: Spoke to Dr. Gutiérrez , hospitalist: will admit. - Diagnoses Provider Diagnoses: Palpitations, Chest pain, unspecified, Dizziness - Provider Notifications Discussed Care Of Patient with: deana Suarezist Time Discussed With Above Provider: 08:47 Instructed by Provider To: Admit As Inpatient Discharge - Discharge Plan Condition: Stable Disposition: ADMITTED TO [facility] Referrals: Virgen Menard MD [Primary Care Provider] - Additional Instructions: Return to the emergency department for changing or worsening symptoms. The documentation as recorded by the Sonja alvarez SooYoung accurately reflects the service I personally performed and the decisions made by , Franc Hairston MD.
[2016-12-31 15:53] VITALS: BP 124/77
--- NOTE | 2016-12-31 16:03 | ECHO ---
Patient: YOU RUBIO [facility] Rec#: [id number] : 1940 Date: 12/31/2016 Age: 76y Height: 160 cm / 63.0 in Weight: 54.4 kg / 119.9 lbs Sex: F BSA: 1.6 Room#: [facility] Admit Date#: 12/30/2016 Type: Inpatient Referring: Sendy Gutiérrez MD Reading: Ezekiel Stringer MD Herb Grower: Suly Nunes RN RDCS CC: YOU SMITH Transthoracic Echocardiogram Indication: Chest pain, PVCs BP: 109/63 HR: 71 Rhythm: NSR with PVCs Findings History: Arthritis, PVCs. Technical Comments: The study quality is fair. Left Ventricle: The left ventricular chamber size is normal. There is increased basal septal hypertrophy noted without evidence of an increased gradient across the left ventricular outflow tract. The septal knuckle measures 1.4cm. Global left ventricular wall motion and contractility are within normal limits. There is normal left ventricular systolic function. The estimated ejection fraction is 60-65%. Abnormal left ventricular diastolic function is observed. The left ventricular diastolic filling pattern is consistent with pseudonormalization. Left Atrium: The left atrial chamber size is normal. Right Ventricle: The right ventricular chamber size and systolic function are within normal limits. Right Atrium: The right atrial cavity size is normal. Aortic Valve: The aortic valve is trileaflet. The aortic valve leaflets are mildly thickened. There is aortic annular calcification. There is mild to moderate aortic regurgitation. There is no evidence of aortic stenosis. The measured aortic regurgitation pressure half-time is 496 msec. Mitral Valve: There is mitral annular calcification. The mitral valve leaflets are mildly thickened. There is mild mitral regurgitation. There is no evidence of mitral stenosis. Tricuspid Valve: The tricuspid valve leaflets are normal. There is moderate tricuspid regurgitation. There is evidence of mild pulmonary hypertension. There is no tricuspid stenosis. Pulmonic Valve: The pulmonic valve appears normal. There is trace to mild pulmonic regurgitation. There is no pulmonic stenosis. Pericardium: The pericardium appears normal. There is no significant pericardial effusion. Aorta: There is no dilatation of the ascending aorta. There is no dilatation of the aortic arch. There is no dilation of the aortic root. Pulmonary Artery: The main pulmonary artery appears normal. Venous: The inferior vena cava appears normal in size. There is a greater than 50% respiratory change in the inferior vena cava dimension. Conclusions Global left ventricular wall motion and contractility are within normal limits. There is normal left ventricular systolic function. The estimated ejection fraction is 60-65%. The right ventricular chamber size and systolic function are within normal limits. The aortic valve leaflets are mildly thickened. There is mild to moderate aortic regurgitation. There is mild mitral regurgitation. There is moderate tricuspid regurgitation. There is evidence of mild pulmonary hypertension. There is no significant pericardial effusion. Measurements Name Value Normal Range RVDdMajor (2D) 3.4 cm (2.2 - 4.4) RAd ISD 4CH 4.1 cm (3.4 - 4.9) RA (A4C)W 3.8 cm (2.9 - 4.6) IVSd (2D) 1 cm (0.6 - 1) LVPWd (2D) 0.9 cm (0.6 - 1) LVIDd (2D) 3.9 cm (3.6 - 5.4) LVIDs (2D) 2.3 cm - LV FS (2D) 42 % (25 - 45) Aortic Annulus 2.2 cm (1.4 - 2.6) Ao root diameter (2D) 3.4 cm (2.1 - 3.5) Ascending Ao 2.7 cm (2.1 - 3.4) Aortic arch 2.2 cm (1.8 - 3.4) LA dimension (AP) 2D 3.3 cm (2.3 - 3.8) LAd ISD 4CH 4.1 cm (2.9 - 5.3) LA ISD 4CH W 3.1 cm (2.5 - 4.5) Name Value Normal Range LA ESV SP 4CH (A/L) 28 ml - LA ESV SP 2CH (A/L) 35 ml - LA ESV BP (A/L) 35 ml - LA ESV BP (A/L) index 22.2 ml/m2 - LA ESV SP 4CH (MOD) 25 ml - LA ESV SP 2CH (MOD) 34 ml - Name Value Normal Range MV E-wave Vmax 0.57 m/sec - MV deceleration time 143 msec - MV A-wave Vmax 0.56 m/sec - MV E:A ratio 1 ratio - LV septal e' Vmax 0.07 m/sec - LV lateral e' Vmax 0.06 m/sec - LV E:e' septal ratio 8.1 ratio - LV E:e' lateral ratio 9.5 ratio - Name Value Normal Range AV Vmax 1.3 m/sec - AV VTI 30.3 cm - AV peak gradient 7 mmHg - AV mean gradient 5 mmHg - LVOT Vmax 1.1 m/sec - LVOT VTI 25.8 cm - LVOT peak gradient 5 mmHg - LVOT mean gradient 3 mmHg - AR PHT 496 msec - SHONNA Vmax 0.76 m/sec - Name Value Normal Range TR Vmax 3 m/sec - TR peak gradient 36 mmHg - RAP 3 mmHg - RVSP 39 mmHg - IVC diameter 1.4 cm - Name Value Normal Range PV Vmax 0.68 m/sec -
--- NOTE | 2017-01-01 04:37 | DS ---
DISCHARGE SUMMARY: DATE OF ADMISSION: 12/30/16 DATE OF DISCHARGE: 12/31/16 PRIMARY CARE PROVIDER: Dr. Menard. DISCHARGE DIAGNOSES: 1. Orthostatic dizziness, most likely due to mild dehydration. 2. Abnormal EKG with frequent PVCs on telemetry monitoring in a patient who is otherwise asymptomatic for cardiac arrhythmia. SECONDARY DIAGNOSES: 1. History of osteoarthritis, status post right knee arthroplasty. 2. Left hip hemiarthroplasty in the past. 3. History of tonsillectomy. 4. Bilateral bunionectomy. MEDICATIONS AT DISCHARGE: Include: 1. Multivitamin. 2. Calcium supplement. 3. Vitamin D. 4. Vitamin B12 supplements as previously taken. LABORATORY DATA AND STUDIES: Performed during the hospital stay included: The patient's troponins continued to be 0 throughout her hospital stay. Transthoracic echocardiogram obtained on the day of discharge showed global left ventricular wall motion and contractility within normal limits. There was normal left ventricular systolic function with EF of 60% to 65%. There was moderate aortic regurgitation and mild pulmonary hypertension. Also, there was an increased basal septal hypertrophy noted without evidence of an increased gradient across the left ventricular outflow tract. CONSULTATIONS DURING THE HOSPITAL STAY: Included Dr. Stringer from Cardiology. HOSPITALIZATION COURSE: Virgen Frausto is a 76-year-old female, who planned to have knee surgery at the beginning of December. During her preop evaluation, she had an EKG, did show ventricular bigeminy. Surgery was consulted and she was supposed to see Cardiology consultation. I suspect that the patient got somewhat anxious because of the EKG report. Ever since the diagnosis of "abnormal EKG," the patient had episodes of dizziness. She has history of very good exercise tolerance. She came into the ED for evaluation of orthostatic dizziness and palpitations. She was noted to have frequent PVCs. She was observed on telemetry monitored bed and PVCs continued despite no electrolyte abnormalities that were noted. Her troponins continued to be negative throughout her hospital stay. Dr. Stringer saw the patient in consultation and recommended transthoracic echocardiogram. That was obtained and as above was unremarkable. Dr. Stringer also recommended an outpatient stress test prior to her planned surgery. After intravenous hydration, the patient felt much better and she did not have orthostatic dizziness anymore. Her systolic pressures remained to be in the low range though. At discharge, the patient recommended also to follow up with her primary care provider in approximately 4 to 7 days. After discharge, she is also recommended to call Dr. Stringer for a followup appointment with a stress test. PHYSICAL EXAMINATION: At the time of discharge is unchanged from admission. CC: Dr. Menard; Dr. Stringer* [id number]/[facility] #: [id number] MTDD
== END 2016-12-31 17:00 | disposition home or self-care (01) ==
LOC: ED 05:41 → MEDTELE 08:47
PROVIDERS: ADMIT Internal Medicine; ATTEND Internal Medicine
DX: R42 Dizziness and giddiness (principal); E86.0 Dehydration; I49.3 Ventricular premature depolarization; I35.1 Nonrheumatic aortic (valve) insufficiency; R07.9 Chest pain, unspecified; I27.2 Other secondary pulmonary hypertension; R00.2 Palpitations; R94.31 Abnormal electrocardiogram [ECG] [EKG]; M17.10 Unilateral primary osteoarthritis, unspecified knee; R61 Generalized hyperhidrosis; Z79.899 Other long term (current) drug therapy
CPT/HCPCS: 36415; 80053; 81003; 81015; 83605; 83735; 84439; 84443; 84484; 85025; 87086; 93005; 93306; 96360; 96361; 96372; 99284; G0378; J1644

== ENCOUNTER 2024-01-29 11:23 | Observation (INO) ==
[2024-01-29 14:33] LABS: Hematocrit 34.9 % (35-45); Hemoglobin 12.2 g/dL (11.5-14.3); Mean Corpuscular Hemoglobin 30.6 pg (27-33); Mean Corpuscular Hgb Conc 34.9 g/dL (31-36); Mean Corpuscular Volume 87.7 fL (80-97); Mean Platelet Volume 8.1 fL (7.5-11.2); Platelet Count 104 10^3/uL (150-450); Red Blood Count 3.98 10^6/uL (3.63-4.92); Red Cell Distribution Width 13.5 % (12-17); White Blood Count 8.6 10^3/uL (3.8-11.8)
[2024-01-29 14:36] LABS: Urine Appearance Clear; Urine Bilirubin Negative (Negative); Urine Blood Trace (Negative); Urine Color Yellow; Urine Glucose Negative (Negative); Urine Ketones Negative (Negative); Urine Nitrite Negative (Negative); Urine Protein Trace (Negative); Urine Specific Gravity 1.012 (1.002-1.030); Urine Urobilinogen Negative (Negative)
[2024-01-29 15:13] LABS: ABS Basophils 0.1 10^3/uL (0.0-0.1); ABS Lymphocytes 1.2 10^3/uL (1.0-4.8); ABS Monocytes 0.4 10^3/uL (0.0-0.9); ABS Nucleated RBC 0.01 10^3/ul; Eosinophil % 0.1 %; Lymphocyte % 13.7 %; Nucleated Red Blood Cells % 0.1 %/100WBC (0.0-0.8)
[2024-01-29 15:17] LABS: Albumin 3.1 g/dL (3.2-5.2); Albumin/Globulin Ratio 1.3 (1-3); Calcium 8.3 mg/dL (8.6-10.3); Creatinine, Serum 0.66 mg/dL (0.51-0.95); Globulin 2.3 g/dL (2-4); Potassium 4.3 mmol/L (3.5-5.0); Total Bilirubin 1.3 mg/dL (0.2-1.0); Total Protein 5.4 g/dL (6.4-8.9); eGFR CKD-EPI 86.4 (>60)
[2024-01-29] MEDS: NS 0.9% 1000 ml BAG 1,000 ML IV ONE ×2 (15:58→17:14)
[2024-01-29 20:51] LABS: Calcium 6.5 mg/dL (8.6-10.3); Creatinine, Serum 0.56 mg/dL (0.51-0.95); Potassium 3.2 mmol/L (3.5-5.0); eGFR CKD-EPI 89.9 (>60)
[2024-01-29] MEDS: Piperacillin/Tazobac 3.375 BAG 3.375 GM/100 ML BAG IV ONE (22:00)
[2024-01-29] MEDS ORDERED: Zosyn per Pharmacy NOTE FOLLOW UP SCH (22:00)
[2024-01-29] MEDS: Enoxaparin 40 MG/0.4 ML SYR SUBCUT SCH (22:01)
[2024-01-29] MEDS: KCL 20 MEQ/100 ML IVPREMIX 20 MEQ/100 ML BAG IV SCH (22:01)
[2024-01-29 22:46] LABS: Magnesium 1.5 mg/dL (1.9-2.7)
[2024-01-30] MEDS: Magnesium Sulfate 2 gm BAG 2 GM/50 ML BAG IVPB ONE (01:57)
[2024-01-30] MEDS: DOXYcycline 100 MG in NS 0.9% 250 ml 250 ML IVPB SCH ×2 (02:04→14:12)
[2024-01-30] MEDS: ZOSYN 3.375 GM Q8H per EXTENDED INFUSION IV SCH (03:14)
[2024-01-30 08:13] LABS: Hematocrit 34.4 % (35-45); Mean Corpuscular Hemoglobin 30.8 pg (27-33); Mean Corpuscular Hgb Conc 34.9 g/dL (31-36); Mean Corpuscular Volume 88.2 fL (80-97); Red Cell Distribution Width 13.6 % (12-17); White Blood Count 6.8 10^3/uL (3.8-11.8)
[2024-01-30 09:10] LABS: ABS Basophils 0.1 10^3/uL (0.0-0.1); ABS Lymphocytes 2.2 10^3/uL (1.0-4.8); ABS Monocytes 0.4 10^3/uL (0.0-0.9); ABS Nucleated RBC 0.01 10^3/ul; Eosinophil % 0.4 %; Lymphocyte % 32.4 %; Mean Platelet Volume 8.1 fL (7.5-11.2); Nucleated Red Blood Cells % 0.1 %/100WBC (0.0-0.8); Platelet Count 99 10^3/uL (150-450)
[2024-01-30 10:39] LABS: Calcium 7.8 mg/dL (8.6-10.3); Creatinine, Serum 0.61 mg/dL (0.51-0.95); Potassium 4.3 mmol/L (3.5-5.0); eGFR CKD-EPI 88.1 (>60)
[2024-01-31 06:46] LABS: Hematocrit 33.8 % (35-45); Hemoglobin 11.9 g/dL (11.5-14.3); Mean Corpuscular Hemoglobin 31.1 pg (27-33); Mean Corpuscular Hgb Conc 35.1 g/dL (31-36); Mean Corpuscular Volume 88.5 fL (80-97); Platelet Count 129 10^3/uL (150-450); Red Blood Count 3.82 10^6/uL (3.63-4.92); Red Cell Distribution Width 14.6 % (12-17); White Blood Count 5.2 10^3/uL (3.8-11.8)
[2024-01-31 07:04] LABS: Calcium 7.7 mg/dL (8.6-10.3); Creatinine, Serum 0.57 mg/dL (0.51-0.95); Potassium 4.3 mmol/L (3.5-5.0); eGFR CKD-EPI 89.6 (>60)
[2024-01-31 08:24] LABS: ABS Basophils 0.1 10^3/uL (0.0-0.1); ABS Eosinophils 0.1 10^3/uL (0.0-0.5); ABS Lymphocytes 2.7 10^3/uL (1.0-4.8); ABS Monocytes 0.4 10^3/uL (0.0-0.9); ABS Nucleated RBC 0.01 10^3/ul; Eosinophil % 1.3 %; Lymphocyte % 51.9 %; Nucleated Red Blood Cells % 0.1 %/100WBC (0.0-0.8)
[2024-01-31 09:49] VITALS: BP 106/71
== END 2024-01-31 13:10 | disposition home or self-care (01) ==
LOC: EDHOLD 11:23 → ED 11:23 → SUATTDRO 19:28 → MED 01-30 07:58
PROVIDERS: ADMIT Internal Medicine; ATTEND Internal Medicine